=== PATIENT | male | born 1995 | race Caucasian/White ===

== ENCOUNTER 2016-08-27 23:56 | Emergency (ER) | payer MEDICAID ==
[~2016-08-27] VITALS: Ht 177.8 cm; Wt 48.1 kg
[2016-08-27 23:57] VITALS: BP_SYST 144
--- NOTE | 2016-08-27 23:57 | NUR ---
Patient to ER bed 6 to gown for evaluation. Side rails up. Report given to Raad MEDEIROS.
--- NOTE | 2016-08-28 | NUR ---
ED MD Leal at bedside for medical evaluation.
--- NOTE | 2016-08-28 | NUR ---
Patient arrived to ED via BLS with c/o seizure sustained while at work. Patient is a/o x 4 at this time. Coworkers on scene report tonic clonic seizure of unknown time. Deny fall. Patient does not present with any injuries at this time. Hx. of epilepsy. Patient reports sustaining a seizure. Does not appear in immediate distress at this time. Will continue to monitor.
[2016-08-28 00:55] VITALS: BP_SYST 144
--- NOTE | 2016-08-28 00:55 | NUR ---
Patient given written and verbal discharge instructions and verbalizes understanding. ER MD discussed with patient the results and treatment provided. Patient in stable condition. ID arm band removed. IV catheter removed intact and dressing applied, no active bleeding. No Rx given. Patient educated on pain management and to follow up with PMD. Pain Scale 0/10 at this time. Opportunity for questions provided and answered.
== END 2016-08-28 00:55 | disposition home or self-care (01) ==
LOC: SED 23:56
DX: G40.909 Epilepsy, unspecified, not intractable, without status epilepticus (principal)
CPT/HCPCS: 99283